=== PATIENT | female | born 1995 | race Caucasian/White ===

== ENCOUNTER → 2017-07-10 | Outpatient (CLI) | payer MEDICAID ==
[~2017-07-10] MED LIST: ACHD5005 PO; ACHYD1T PO; AMOX500C2 PO; BIRTH CONTORL; CEPH-38 PO; CEPH500C PO; HYDR-707 PO; IBP600T1 PO; IBP800T PO; INDM25C PO; LORA10TA7 PO; NAPR550T PO; NORE1PAT7 TD; ONDA8TAB13 PO; PRD20T PO; PREN1TAB71 PO
--- NOTE | 2017-07-10 11:01 | Diagnostic Imaging Report ---
PROCEDURE: US OB SINGLE FETUS <14 WKS. TECHNIQUE: Multiple real-time grayscale images were obtained over the gravid uterus in various projections. INDICATION: OB ultrasound for dates. FINDINGS: There is single live intrauterine fetus. [place]-rump length of 1.8 cm consistent with 8 week 3 day gestation. heart rate of 156 beats per minute. There does appear to be a small subchorionic fluid collection consistent with small hemorrhage measuring 1.5 x 2.5 cm on the right. This is fundal in nature. The ovaries are not demonstrated. IMPRESSION: 1. Single live intrauterine fetus consistent with 8 week 3 day gestation by ultrasound. This would give a sonographic EDC of 02/16/2018. 2. There is a subchorionic fluid collection along the fundus on the right. Dictated by: Dictated on workstation # [id number]
== END ==
LOC: RAD 09:26
PROVIDERS: ATTEND Family Medicine
DX: Z36.89 Encounter for other specified antenatal screening (principal); Z3A.08 8 weeks gestation of pregnancy
CPT/HCPCS: 76801

== ENCOUNTER 2017-08-01 19:16 | Emergency (ER) | payer MEDICAID ==
[~2017-08-01] VITALS: Ht 157.5 cm; Wt 54.0 kg
--- NOTE | 2017-08-01 21:01 | ED Head Injury ---
General Chief Complaint: Head/Cervical Problems Stated Complaint: FALL;DIZZINESS Nursing Triage Note: pt reports around 1440 she tripped into her bathroom and hit back of head on toilet, pt reports she did not have loc. pt states she got up and went to work abd around 1630 began to feel lightheaded and have crow. Source: patient Exam Limitations: no limitations History of Present Illness Date Seen by Provider: Aug 01, 2017 Time Seen by Provider: 21:00 Initial Comments 22-year-old female patient presents to the emergency department with complaints of falling in her bathroom at 1440 today and hitting the back of her head on the toilet. Patient states she did not lose consciousness. Initially did not have a headache. States she went to work and began having a headache and feeling lightheaded around 1630. States her employer instructed her to come to the emergency department for evaluation. Patient states she is 11 weeks . Location Injury Occurred: home Occurred: this afternoon Location: occipital Method of Injury: fell Loss of Consciousness: no loss of consciousness Allergies and Home Medications Allergies Coded Allergies: latex (Unverified Allergy, Mild, RASH, 01/01/15) Home Medications Norelgestromin/Ethin.estradiol 1 Each Patch.tdwk, 1 PATCH TD UD, #3 (Reported) Ondansetron 8 Mg Tab.rapdis, 8 MG PO Q6H PRN for NAUSEA, #10 Ref 0 Prescribed by: VISHAL BAGLEY on 05/30/161943 Prednisone 20 Mg Tab, 40 MG PO DAILY, #10 Ref 0 Prescribed by: VISHAL BAGLEY on 05/30/161943 Constitutional: No diaphoresis, No dizziness, No malaise, No weakness Eyes: No Symptoms Reported Ears, Nose, Mouth, Throat: no symptoms reported Respiratory: no symptoms reported Cardiovascular: No chest pain, No edema, No palpitations, No syncope, other ( lightheaded) Gastrointestinal: no symptoms reported Genitourinary: no symptoms reported Expected Date of Delivery: Feb 16, 2018 Musculoskeletal: No back pain, No joint pain, No neck pain Skin: no symptoms reported Psychiatric/Neurological: Denies Cognitive Dysfunction, Headache, Denies Numbness, Denies [place] Seizures, Denies Tingling, Denies Tonic Clonic Seizures, Denies Unable to Move Lower Ext, Denies Unable to Move Upper Ext, Denies Weakness All Other Systems Reviewed Negative Unless Noted: Yes (Negative excepted noted.) Past Dremgle-Ccoepb-Hbmjsx Hx Patient Social History Alcohol Use: Denies Use Recreational Drug Use: No Smoking Status: Never a Smoker Recent Foreign Travel: No Contact w/Someone Who Travel: No Recent Infectious Disease Expo: No Recent Hopitalizations: No Immunizations Up To Date Tetanus Booster (TDap): Less than 5yrs PED Vaccines UTD: No Date of Influenza Vaccine: Mar 26, 2011 Seasonal Allergies Seasonal Allergies: No Surgeries History of Surgeries: Yes Surgeries: Appendectomy Respiratory History of Respiratory Disorde: No Cardiovascular History of Cardiac Disorders: No Neurological History of Neurological Disord: Yes (childhood seizures-benign epilepsy, last one 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) Reproductive System : Yes Expected Date of Delivery: Feb 16, 2018 Last Menstrual Period: May 10, 2017 Hx : 3 Hx Para: 2 Hx Reproductive Disorders: No Female Reproductive Disorders: Ovarian Cyst Genitourinary History of Genitourinary Disor: No Gastrointestinal History of Gastrointestinal Di: No Gastrointestinal Disorders: Gastroesophageal Reflux Musculoskeletal History of Musculoskeletal Dis: No Endocrine History of Endocrine Disorders: No HEENT History of HEENT Disorders: No Cancer History of Cancer: No Psychosocial History of Psychiatric Problem: No Integumentary History of Skin or Integumenta: No Blood Transfusions History of Blood Disorders: No Adverse Reaction to a Blood Tr: No Reviewed Nursing Assessment Reviewed/Agree w Nursing PMH: Yes Family Medical History Significant Family History: No Pertinent Family Hx Family Medial History: Asthma 19 MOTHER Headache disorder 19 MOTHER (migraines) G8 SISTER (migraines) No Family History of: AIDS Abdominal aortic aneurysm [place]'s disease Alcoholism Alzheimer's disease Aphasia Arthritis Cancer of mouth Cardiovascular disease Cataracts Colon cancer Completed stroke Congenital disease Congenital heart disease Coronary thrombosis Cystic fibrosis Deafness or hearing loss Dementia Diabetes mellitus Drug abuse Dysphasia Fibrocystic disease of breast Gastroenteritis Glaucoma Hypercholesterolemia Hypertension Infertility Kidney disease Myocardial infarction Neoplasm Not obtainable due to adoption Osteoporosis Parkinson's disease Prostate cancer Psychosocial problem Respiratory disorder Seizure disorder Severe allergy Thyroid disease Tuberculosis Visual disorder Physical Exam Vital Signs Vital Signs - First Documented 08/01/17 20:17 Temp 98.7 Pulse 123 Resp 20 B/P (MAP) 109/74 (86) Pulse Ox 99 Capillary Refill : Less Than 3 Seconds General Appearance: WD/WN, no apparent distress HEENT: PERRL/EOMI, normal ENT inspection, TMs normal, pharynx normal, other ( occipital scalp shows mild swelling and tenderness. Evidence of skull depression noted.) Neck: non-tender, full range of motion, supple, normal inspection Cardiovascular: normal peripheral pulses, regular rate, rhythm, no edema, no murmur Respiratory: chest non-tender, lungs clear, normal breath sounds, no respiratory distress, no accessory muscle use Gastrointestinal: normal bowel sounds, non tender, soft, no organomegaly Back: normal inspection, no CVA tenderness, no vertebral tenderness Extremities: normal range of motion, non-tender, normal inspection, no pedal edema, normal capillary refill, pelvis stable Psychiatric: alert, oriented x 3 Crainal Nerves: normal hearing, normal speech, PERRL Coordination/Gait: normal finger to nose, normal gait, negative Romberg's sign Motor/Sensory: no motor deficit, no sensory deficit, no pronator drift Skin: normal color, warm/dry Hollins Coma Score Best Eye Response: (4) Open Spontaneously Best Verbal Response: (5) Oriented Best Motor Response: (6) Obeys Commands Hollins Total: 15 Progress/Results/Core Measures Results/Orders My Orders Orders - VISHAL BAGLEY Acetaminophen Tablet (Tylenol Tablet) (08/01/17 21:18) Rx-Hydrocodone/Apap 5-325 Mg (Rx-Vicodin (08/01/17 21:30) Medications Given in ED Current Medications Medications Dose Ordered Sig/Bibiana Route Start Time Stop Time Status Last Admin Dose Admin Acetaminophen/ Hydrocodone Bitart 1 ea Q4H PRN PO 08/01/17 21:30 08/01/17 21:35 1 EA Vital Signs/I&O Vital Sign - Last 12Hours 08/01/17 20:17 Temp 98.7 Pulse 123 Resp 20 B/P (MAP) 109/74 (86) Pulse Ox 99 Blood Pressure Mean: 86 Departure Communication (Admissions) Progress Notes Patient seen and evaluated. Patient did not have loss of consciousness, confusion, seizure, vomiting, or neck pain. Patient is also 11 weeks . I discussed risks, benefits, possible complications associated with CT scan of the head versus conservative management. Patient states she has an appointment with Dr. Giraldo tomorrow morning in his office for regular checkup. Patient states she would like to proceed with conservative management and follow -up with Dr. Giraldo tomorrow as previously scheduled. All return precautions were discussed with the patient as described in the discharge instructions of this report. Patient verbalizes understanding and agrees with the treatment plan. Patient case discussed with Dr. Norwood, he agrees with the plan of care. Impression Impression: Primary Impression: Minor head injury without loss of consciousness Qualified Codes: S09.90XA - Unspecified injury of head, initial encounter Additional Impression: 11 weeks gestation of Disposition: 01 HOME, SELF-CARE Condition: Improved Departure-Patient Inst. Decision time for Depature: 21:19 Referrals: ARMANDO GIRALDO MD (PCP/Family) Primary Care Physician Patient Instructions: Minor Head Injury (DC) Add. Discharge Instructions: All discharge instructions reviewed with patient and/or family. Voiced understanding. Medications as instructed or Tylenol extra strength over-the- counter as directed for pain or headache. Ice pack for 20 minute intervals as needed for pain. Avoid standing quickly. No activities which may result and head injury or strenuous activities until released by Dr. Giraldo. Follow-up with Dr. Giraldo tomorrow as previously scheduled. Return to the emergency department for worsened pain, headache, dizziness, changes in vision, changes in behavior, slurred speech, facial drooping, neck pain, back pain, shortness of air, chest pain, seizure, vomiting, vaginal bleeding, vaginal discharge, or any other concerns. Work/School Note: Work Release Form Date Seen in the Emergency Department: Aug 01, 2017 Return to Work: Aug 03, 2017 Restrictions: Need Release from Doctor VISHAL BAGLEY Aug 01, 2017 21:01
[2017-08-01] MEDS ORDERED: ACETAMINOPHEN 500 MG TAB (TYLENOL) PO STA (21:18)
[2017-08-01] MEDS ORDERED: RX-HYDROCODONE/APAP 5/325 MG #4 TAB PK PO PRN (21:30)
[2017-08-01 21:35] VITALS: BP 113/76
== END 2017-08-01 21:35 | disposition home or self-care (01) ==
LOC: EDUNIT# 19:16 → ER 19:17
DX: O9A.211 Injury, poisoning and certain other consequences of external causes complicating pregnancy, first trimester (principal); S09.90XA Unspecified injury of head, initial encounter; R40.2142 Coma scale, eyes open, spontaneous, at arrival to emergency department; R40.2252 Coma scale, best verbal response, oriented, at arrival to emergency department; R40.2362 Coma scale, best motor response, obeys commands, at arrival to emergency department; G40.909 Epilepsy, unspecified, not intractable, without status epilepticus; Z87.448 Personal history of other diseases of urinary system; Z91.040 Latex allergy status; Z79.52 Long term (current) use of systemic steroids; Z90.49 Acquired absence of other specified parts of digestive tract; W01.198A Fall on same level from slipping, tripping and stumbling with subsequent striking against other object, initial encounter; Z3A.11 11 weeks gestation of pregnancy
CPT/HCPCS: 99283

== ENCOUNTER → 2017-10-02 | Outpatient (CLI) | payer MEDICAID ==
--- NOTE | 2017-10-02 13:51 | Diagnostic Imaging Report ---
INDICATION: survey. TECHNIQUE: Multiple real-time grayscale images were obtained over the gravid uterus. COMPARISON: 07/10/2017. FINDINGS: There is a single live fetus in a transverse presentation, head to the maternal right. heart rate was recorded at 139 beats per minute. The placenta is posterior. The amniotic fluid volume is normal. survey demonstrates kidneys, bladder, and stomach to be unremarkable. brain is unremarkable. There is a four-chamber heart. There is a three-vessel cord with normal cord insertion. The spine is unremarkable. Biometrical measurements are as follows: Biparietal 5.0 cm, age 21 weeks 1 days. Head circumference 18.3 cm, age 20 weeks 5 days. Abdominal circumference 15.5 cm, age 20 weeks 5 days. Femur length 3.4 cm, age 20 weeks 5 days. Sonographic estimate age: 20 weeks 6 days. Sonographic estimated date of delivery: 02/13/18. Estimated Weight: 372 gm (+/- 54 gm). LMP percentile: 61%. heart rate: 139 beats per minute. number: 1 of 1. IMPRESSION: Single live IUP at approximately 21 weeks gestational age demonstrating normal interval growth when compared with prior exam from 07/10/2017. No complicating features are detected. Dictated by: Dictated on workstation # [id number]
== END ==
LOC: RAD 12:16
PROVIDERS: ATTEND Family Medicine
DX: Z36.89 Encounter for other specified antenatal screening (principal); Z3A.20 20 weeks gestation of pregnancy
CPT/HCPCS: 76805

== ENCOUNTER 2017-11-22 10:33 | Outpatient (CLI) | payer MEDICAID ==
[2017-11-22 11:32] VITALS: BP 105/59
[2017-11-22 11:55] VITALS: BP 96/57
== END 2017-11-22 11:55 | disposition home or self-care (01) ==
LOC: WSo 10:33
PROVIDERS: ATTEND Family Medicine
DX: Z31.82 Encounter for Rh incompatibility status (principal)
CPT/HCPCS: 96372

== ENCOUNTER 2018-08-26 16:27 | Emergency (ER) | payer MEDICAID ==
[~2018-08-26] VITALS: Ht 157.5 cm; Wt 63.5 kg
[~2018-08-26 16:27] MED LIST changes: +IBUP-844 PO
--- NOTE | 2018-08-26 16:40 | ED EENT ---
History of Present Illness General Chief Complaint: Oral/Throat Problems Stated Complaint: SORE THROAT,FEVER Source: patient Exam Limitations: no limitations History of Present Illness Date Seen by Provider: Aug 26, 2018 Time Seen by Provider: 16:37 Initial Comments This 23-year-old white female presents with a sore throat and fever that has been present since this morning. The patient is worried that she has strep throat. 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 Patient denies associated headache, stiff neck, photophobia, productive cough or shortness of breath, nausea vomiting or diarrhea. Allergies and Home Medications Allergies Coded Allergies: latex (Unverified Allergy, Mild, RASH, 01/01/15) Home Medications Ibuprofen 600 Mg Tablet, 600 MG PO Q6H Prescribed by: ARMANDO GIRALDO on 02/13/18 172 Ondansetron 8 Mg Tab.rapdis, 8 MG PO Q6H PRN for NAUSEA Prescribed by: VISHAL BAGLEY on 05/30/161943 Patient Home Medication List Home Medication List Reviewed: Yes Review of Systems Review of Systems Constitutional: fever Eyes: Denies Blurred Vision Ears: Denies Pain Nose: denies epistaxis Mouth: pain Throat: see HPI, pain Respiratory: No cough Cardiovascular: No chest pain Gastrointestinal: No abdominal pain, No nausea, No vomiting Musculoskeletal: no symptoms reported Skin: no symptoms reported Neurological: No Symptoms Reported Hematologic/Lymphatic: No Symptoms Reported Immunological/Allergic: no symptoms reported Past Fflouka-Poblqz-Qepsqd Hx Past Med/Social Hx: Reviewed Nursing Past Med/Soc Hx Patient Social History Recent Foreign Travel: No Contact w/Someone Who Travel: No Recent Hopitalizations: No Immunizations Up To Date Tetanus Booster (TDap): Less than 5yrs PED Vaccines UTD: No Date of Influenza Vaccine: Mar 26, 2011 Seasonal Allergies Seasonal Allergies: No Past Medical History Surgeries: Yes Appendectomy Respiratory: No Cardiac: No Neurological: Yes (childhood seizures-benign epilepsy, last one 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 ) Reproductive Disorders: No Female Reproductive Disorders: Ovarian Cyst Genitourinary: No Gastrointestinal: No Gastroesophageal Reflux Musculoskeletal: No Endocrine: No HEENT: No Cancer: No Psychosocial: No Integumentary: No Blood Disorders: No Adverse Reaction/Blood Tranf: No (hx of 1 unit given/no reaction) Family Medical History Asthma 19 MOTHER Headache disorder 19 MOTHER (migraines) G8 SISTER (migraines) No Family History of: AIDS Abdominal aortic aneurysm [place]'s disease Alcoholism Alzheimer's disease Aphasia Arthritis Cancer of mouth Cardiovascular disease Cataracts Colon cancer Completed stroke Congenital disease Congenital heart disease Coronary thrombosis Cystic fibrosis Deafness or hearing loss Dementia Diabetes mellitus Drug abuse Dysphasia Fibrocystic disease of breast Gastroenteritis Glaucoma Hypercholesterolemia Hypertension Infertility Kidney disease Myocardial infarction Neoplasm Not obtainable due to adoption Osteoporosis Parkinson's disease Prostate cancer Psychosocial problem Respiratory disorder Seizure disorder Severe allergy Thyroid disease Tuberculosis Visual disorder No Pertinent Family Hx Physical Exam Vital Signs Vital Signs - First Documented 08/26/18 16:30 Temp 96.2 Pulse 100 Resp 18 B/P (MAP) 112/62 (79) Pulse Ox 100 O2 Delivery Room Air Height, Weight, BMI Height: 5'2.00" Weight: 157lbs. 0.0oz. 71.842021cg; 28.7 BMI Method:Stated General Appearance: no apparent distress Eyes: bilateral eye normal inspection Ears: bilateral ear auricle normal Nose: normal inspection Mouth/Throat: pharynx tenderness Neck: non-tender, full range of motion, supple Cardiovascular: regular rate, rhythm, no murmur Respiratory: chest non-tender, normal breath sounds Gastrointestinal: normal bowel sounds, soft Neurologic/Psychiatric: no motor/sensory deficits, alert Skin: normal color, warm/dry; No rash Progress/Results/Core Measures Results/Orders Lab Results Laboratory Tests Test 08/26/18 16:34 Range/Units Group A Streptococcus Screen NEGATIVE NEGATIVE My Orders Orders - MARIELA STEVENS MD Rapid Strep A Screen (08/26/18 16:36) Vital Signs/I&O 08/26/18 16:30 Temp 96.2 Pulse 100 Resp 18 B/P (MAP) 112/62 (79) Pulse Ox 100 O2 Delivery Room Air Progress Progress Note : Time: 17:18 Progress Note Patient's strep screen was negative. Departure Impression Primary Impression: Acute viral pharyngitis Disposition: 01 HOME, SELF-CARE Condition: Unchanged Departure-Patient Inst. Decision time for Depature: 17:19 Referrals: ARMANDO GIRALDO MD (PCP/Family) Primary Care Physician Patient Instructions: Viral Pharyngitis Add. Discharge Instructions: Rest at home. Warm salt water gargles. Vicodin for severe pain. Return if any problems or questions. All discharge instructions reviewed with patient and /or family. Voiced understanding. MARIELA STEVENS MD Aug 26, 2018 16:40
[2018-08-26] MEDS ORDERED: NAPR-1067 (16:44)
[2018-08-26 18:10] VITALS: BP 112/62
== END 2018-08-26 18:10 | disposition home or self-care (01) ==
LOC: EDUNIT# 16:27 → ER 16:28
DX: J02.9 Acute pharyngitis, unspecified (principal); G40.909 Epilepsy, unspecified, not intractable, without status epilepticus; K21.9 Gastro-esophageal reflux disease without esophagitis; Z87.448 Personal history of other diseases of urinary system; Z91.040 Latex allergy status; Z90.49 Acquired absence of other specified parts of digestive tract
CPT/HCPCS: 87430; 99284

== ENCOUNTER → 2019-11-19 | Outpatient (CLI) | payer MEDICAID ==
[~2019-11-19] MED LIST changes: +NAPR-1067
--- NOTE | 2019-11-19 13:17 | Diagnostic Imaging Report ---
INDICATION: dating. There is an intrauterine gestational sac containing a pole. [place]-rump length measurement is consistent with approximately 6 weeks 4 days gestation. heart rate was recorded at 120 bpm. There is an area of hypoechogenicity adjacent to the gestational sac consistent with subchorionic bleed. Left ovary does contain a 17 mm cyst, likely corpus luteum. No free fluid is seen. Ovaries demonstrate blood flow. IMPRESSION: Single live IUP approximately 6 weeks 4 days gestational age. Estimated date of confinement sonographically is 07/10/2020. Note is made of small and subchorionic bleed. Dictated by: Dictated on workstation # [id number]
== END ==
LOC: RAD 09:56
PROVIDERS: ATTEND Family Medicine
DX: Z34.91 Encounter for supervision of normal pregnancy, unspecified, first trimester (principal); Z3A.01 Less than 8 weeks gestation of pregnancy
CPT/HCPCS: 76801; 76817

== ENCOUNTER 2020-03-08 10:13 | Emergency (ER) | payer MEDICAID ==
[~2020-03-08] VITALS: Ht 157 cm; Wt 63.5 kg
[2020-03-08 10:37] LABS: BILIRUBIN,URINE NEGATIVE (NEGATIVE); CLARITY,URINE CLEAR; COLOR,URINE YELLOW; GLUCOSE, URINE (UA) NEGATIVE (NEGATIVE); KETONES,URINE NEGATIVE (NEGATIVE); LEUKOCYTE ESTERASE ,URINE NEGATIVE (NEGATIVE); NITRITE,URINE NEGATIVE (NEGATIVE); PROTEIN,URINE NEGATIVE (NEGATIVE)
[2020-03-08 10:45] LABS: BASOPHILS % (AUTO) 0 % (0-10); EOSINOPHILS # (AUTO) 0.2 10^3/uL (0.0-0.3); EOSINOPHILS % (AUTO) 2 % (0-10); HEMATOCRIT 33 % (35-52); HEMOGLOBIN 11.4 G/DL (11.5-16.0); LYMPHOCYTES # (AUTO) 2.2 X 10^3 (1.0-4.0); LYMPHOCYTES % (AUTO) 19 % (12-44); MEAN CORPUSCULAR HEMOGLOBIN 30 PG (25-34); MEAN CORPUSCULAR HGB CONC 34 G/DL (32-36); MEAN CORPUSCULAR VOLUME 88 FL (80-99); MEAN PLATELET VOLUME 11.1 FL (7.4-10.4); MONOCYTES # (AUTO) 0.6 X 10^3 (0.0-1.0); MONOCYTES % (AUTO) 5 % (0-12); NEUTROPHILS # (AUTO) 8.8 X 10^3 (1.8-7.8); NEUTROPHILS % (AUTO) 74 % (42-75); PLATELET COUNT 204 10^3/uL (130-400); WHITE BLOOD COUNT 11.9 10^3/uL (4.3-11.0)
[2020-03-08 10:47] LABS: BACTERIA,URINE TRACE /HPF
--- NOTE | 2020-03-08 10:47 | ED General ---
General Chief Complaint: Eye Problems Stated Complaint: BLURRIED VISION Source of Information: Patient Exam Limitations: No Limitations History of Present Illness Date Seen by Provider: Mar 08, 2020 Time Seen by Provider: 10:23 Initial Comments Here with report of intermittent blurred vision over the last 24 hours. Patient is 22 weeks and had ultrasound 10 days ago showing everything was okay at that point. Denies dysuria or diarrhea. States eating and drinking okay although not drinking enough water. Does take vitamins. Follows up with Dr. Giraldo. Timing/Duration: 24 Hours, Intermittent Severity: Mild Associated Systoms: No Chest Pain, No Cough, No Fever/Chills, No Nausea/Vomiting, No Shortness of Air, No Weakness Allergies and Home Medications Allergies Coded Allergies: latex (Unverified Allergy, Mild, RASH, 01/01/15) Home Medications Ibuprofen 600 Mg Tablet, 600 MG PO Q6H Prescribed by: ARMANDO GIRALDO on 02/13/18 1721 Ondansetron 8 Mg Tab.rapdis, 8 MG PO Q6H PRN for NAUSEA Prescribed by: VISHAL BAGLEY on 05/30/16 1944 Patient Home Medication List Home Medication List Reviewed: Yes Review of Systems Review of Systems Constitutional: see HPI EENTM: blurred vision; No double vision Respiratory: No cough, No short of breath Cardiovascular: No chest pain, No edema Gastrointestinal: No abdominal pain, No nausea, No vomiting Genitourinary: No dysuria, No frequency : Yes Musculoskeletal: no symptoms reported Skin: no symptoms reported Psychiatric/Neurological: See HPI Past Hwfgvrw-Yyxfnh-Ysyloe Hx Past Med/Social Hx: Reviewed Nursing Past Med/Soc Hx Patient Social History Alcohol Use: Denies Use Recreational Drug Use: No Smoking Status: Never a Smoker Recent Foreign Travel: No Contact w/Someone Who Travel: No Recent Hopitalizations: No Immunizations Up To Date Tetanus Booster (TDap): Less than 5yrs PED Vaccines UTD: No Date of Influenza Vaccine: Mar 26, 2011 Seasonal Allergies Seasonal Allergies: No Past Medical History Surgeries: Yes Appendectomy Respiratory: No Cardiac: No Neurological: Yes (childhood seizures-benign epilepsy, last one 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) Reproductive Disorders: No Female Reproductive Disorders: Ovarian Cyst Genitourinary: No Gastrointestinal: No Gastroesophageal Reflux Musculoskeletal: No Endocrine: No HEENT: No Cancer: No Psychosocial: No Integumentary: No Blood Disorders: No Adverse Reaction/Blood Tranf: No (hx of 1 unit given/no reaction) Family Medical History Reviewed Nursing Family Hx Asthma 19 MOTHER Headache disorder 19 MOTHER (migraines) G8 SISTER (migraines) No Pertinent Family Hx Physical Exam Vital Signs Capillary Refill : Height, Weight, BMI Height: 5'2.00" Weight: 140lbs. 0.0oz. 63.122642ef; 28.7 BMI Method:Stated General Appearance: No Apparent Distress, WD/WN HEENT: PERRL/EOMI, Pharynx Normal Neck: Non Tender, Supple Respiratory: Lungs Clear, Normal Breath Sounds Cardiovascular: Regular Rate, Rhythm, No Murmur Back: Normal Inspection, No CVA Tenderness, No Vertebral Tenderness Extremity: Normal Range of Motion, Non Tender Neurologic/Psychiatric: Alert, Oriented x3 Skin: Normal Color, Warm/Dry Progress/Results/Core Measures Suspected Sepsis SIRS Temperature: Pulse: Respiratory Rate: Laboratory Tests 03/08/20 10:38: White Blood Count 11.9H Blood Pressure / Mean: Laboratory Tests 03/08/20 10:38: Creatinine 0.57L, Platelet Count 204, Total Bilirubin 0.4 Results/Orders Lab Results Laboratory Tests Test 03/08/20 10:20 03/08/20 10:38 Range/Units Urine Color YELLOW Urine Clarity CLEAR Urine pH 7.0 5-9 Urine Specific [place] 1.015 L 1.016-1.022 Urine Protein NEGATIVE NEGATIVE Urine Glucose (UA) NEGATIVE NEGATIVE Urine Ketones NEGATIVE NEGATIVE Urine Nitrite NEGATIVE NEGATIVE Urine Bilirubin NEGATIVE NEGATIVE Urine Urobilinogen 0.2 < = 1.0 MG/DL Urine Leukocyte Esterase NEGATIVE NEGATIVE Urine RBC (Auto) NEGATIVE NEGATIVE Urine RBC NONE /HPF Urine WBC NONE /HPF Urine Squamous Epithelial Cells 5-10 /HPF Urine Crystals NONE /LPF Urine Bacteria TRACE /HPF Urine Casts NONE /LPF Urine Mucus NEGATIVE /LPF Urine Culture Indicated NO White Blood Count 11.9 H 4.3-11.0 10^3/uL Red Blood Count 3.79 L 4.35-5.85 10^6/uL Hemoglobin 11.4 L 11.5-16.0 G/DL Hematocrit 33 L 35-52 % Mean Corpuscular Volume 88 80-99 FL Mean Corpuscular Hemoglobin 30 25-34 PG Mean Corpuscular Hemoglobin Concent 34 32-36 G/DL Red Cell Distribution Width 13.2 10.0-14.5 % Platelet Count 204 130-400 10^3/uL Mean Platelet Volume 11.1 H 7.4-10.4 FL Neutrophils (%) (Auto) 74 42-75 % Lymphocytes (%) (Auto) 19 12-44 % Monocytes (%) (Auto) 5 0-12 % Eosinophils (%) (Auto) 2 0-10 % Basophils (%) (Auto) 0 0-10 % Neutrophils # (Auto) 8.8 H 1.8-7.8 X 10^3 Lymphocytes # (Auto) 2.2 1.0-4.0 X 10^3 Monocytes # (Auto) 0.6 0.0-1.0 X 10^3 Eosinophils # (Auto) 0.2 0.0-0.3 10^3/uL Basophils # (Auto) 0.0 0.0-0.1 10^3/uL Sodium Level 136 135-145 MMOL/L Potassium Level 3.7 3.6-5.0 MMOL/L Chloride Level 107 98-107 MMOL/L Carbon Dioxide Level 20 L 21-32 MMOL/L Anion Gap 9 5-14 MMOL/L Blood Urea Nitrogen 7 7-18 MG/DL Creatinine 0.57 L 0.60-1.30 MG/DL Estimat Glomerular Filtration Rate > 60 BUN/Creatinine Ratio 12 Glucose Level 93 70-105 MG/DL Calcium Level 8.5 8.5-10.1 MG/DL Corrected Calcium 8.9 8.5-10.1 MG/DL Total Bilirubin 0.4 0.1-1.0 MG/DL Aspartate Amino Transf (AST/SGOT) 19 5-34 U/L Alanine Aminotransferase (ALT/SGPT) 19 0-55 U/L Alkaline Phosphatase 83 40-136 U/L Total Protein 6.4 6.4-8.2 GM/DL Albumin 3.5 3.2-4.5 GM/DL My Orders Orders - SIXTO VEE MD Ua Culture If Indicated (03/08/20 10:28) Cbc With Automated Diff (03/08/20 10:28) Comprehensive Metabolic Panel (03/08/20 10:28) Vital Signs/I&O Capillary Refill : Progress Note : Progress Note Seen and evaluated. 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 We will check UA as well as basic labs. If these are negative, he can follow up with her on Monday or Monday. This was discussed with the patient who agrees. Monitor patient. 1105: Labs reviewed and showed no acute significant findings. I did discuss with the patient regarding normalizing diet and drinking appropriate amount of fluids including water. Instructed to follow-up with Dr. Giraldo. Discharged home with return precautions. Patient verbalize understanding instructions and agreement with plan. Departure Impression Primary Impression: Blurred vision, bilateral Additional Impression: Single in second trimester Disposition: 01 HOME, SELF-CARE Condition: Stable Departure-Patient Inst. Decision time for Depature: 11:07 Referrals: ARMANDO GIRALDO MD (PCP/Family) Primary Care Physician Patient Instructions: Nutrition Before and During Add. Discharge Instructions: All discharge instructions reviewed with patient and/or family. Voiced understanding. Follow-up with Dr. Giraldo in one to 2 days. Call his office tomorrow for appointment. Return for worsening vision problems, pain, fever, vomiting, weakness, breathing problems or other concerns as needed. Continue to eat a normal diet and drink an adequate amount of fluids including water. Copy Copies To 1: ARMANDO GIRALDO MD, TIMOTHY D MD Mar 08, 2020 10:47
[2020-03-08 10:51] LABS: ALBUMIN 3.5 GM/DL (3.2-4.5); CHLORIDE 107 MMOL/L (98-107); POTASSIUM 3.7 MMOL/L (3.6-5.0); SODIUM 136 MMOL/L (135-145)
[2020-03-08 10:52] LABS: CALCIUM 8.5 MG/DL (8.5-10.1)
[2020-03-08 10:53] LABS: GLUCOSE 93 MG/DL (70-105)
[2020-03-08 10:54] LABS: TOTAL PROTEIN 6.4 GM/DL (6.4-8.2)
[2020-03-08 10:55] LABS: BILIRUBIN,TOTAL 0.4 MG/DL (0.1-1.0); CARBON DIOXIDE 20 MMOL/L (21-32)
[2020-03-08 10:57] LABS: ALKALINE PHOSPHATASE 83 U/L (40-136); CREATININE SERUM 0.57 MG/DL (0.60-1.30); GFR ESTIMATED > 60
[2020-03-08 10:58] LABS: BUN/CREATININE RATIO 12
[2020-03-08 11:00] LABS: ALANINE AMINOTRANSFERASE 19 U/L (0-55)
[2020-03-08 11:18] VITALS: BP 126/84
== END 2020-03-08 11:18 | disposition home or self-care (01) ==
LOC: EDUNIT# 10:13 → ER 10:14
DX: O26.892 Other specified pregnancy related conditions, second trimester (principal); H53.8 Other visual disturbances; Z3A.22 22 weeks gestation of pregnancy; Z91.040 Latex allergy status
CPT/HCPCS: 36415; 80053; 81000; 85025

== ENCOUNTER 2020-04-16 18:11 | Outpatient (CLI) | payer MEDICAID ==
[~2020-04-16] VITALS: Ht 157.5 cm; Wt 68.3 kg
[2020-04-16 18:25] VITALS: BP 119/70
[2020-04-16 18:36] VITALS: BP 119/70
[2020-04-16 18:42] VITALS: BP 119/70
[2020-04-16 19:34] LABS: BILIRUBIN,URINE NEGATIVE (NEGATIVE); CLARITY,URINE SL CLOUDY; COLOR,URINE YELLOW; GLUCOSE, URINE (UA) NEGATIVE (NEGATIVE); KETONES,URINE NEGATIVE (NEGATIVE); LEUKOCYTE ESTERASE ,URINE NEGATIVE (NEGATIVE); NITRITE,URINE NEGATIVE (NEGATIVE); PH,URINE 6.5 (5-9); PROTEIN,URINE NEGATIVE (NEGATIVE)
[2020-04-16 19:37] VITALS: BP 108/72
[2020-04-16 19:44] LABS: AMORPHOUS SEDIMENT,UR FEW AMOR URATES /LPF; BACTERIA,URINE TRACE /HPF; WBC,URINE 0-2 /HPF
--- NOTE | 2020-04-16 19:48 | NUR ---
Dr. Sandhu notified of patient arrival, complaints, assessment, and UA. Orders received to get CBC.
[2020-04-16 20:10] LABS: BASOPHILS % (AUTO) 0 % (0-10); EOSINOPHILS # (AUTO) 0.2 10^3/uL (0.0-0.3); EOSINOPHILS % (AUTO) 2 % (0-10); HEMATOCRIT 31 % (35-52); HEMOGLOBIN 10.2 g/dL (11.5-16.0); LYMPHOCYTES # (AUTO) 2.7 10^3/uL (1.0-4.0); LYMPHOCYTES % (AUTO) 24 % (12-44); MEAN CORPUSCULAR HEMOGLOBIN 29 pg (25-34); MEAN CORPUSCULAR HGB CONC 33 g/dL (32-36); MEAN CORPUSCULAR VOLUME 89 fL (80-99); MEAN PLATELET VOLUME 11.1 fL (9.0-12.2); MONOCYTES # (AUTO) 0.7 10^3/uL (0.0-1.0); MONOCYTES % (AUTO) 6 % (0-12); NEUTROPHILS # (AUTO) 7.4 10^3/uL (1.8-7.8); NEUTROPHILS % (AUTO) 67 % (42-75); PLATELET COUNT 211 10^3/uL (130-400)
--- NOTE | 2020-04-16 20:14 | NUR ---
Dr. Sandhu notified of CBC. Orders received to discharge home and to follow up in the office in the morning.
--- NOTE | 2020-04-16 20:30 | NUR ---
Written discharge instructions reviewed with patient. Discharge instructions signed and copy given. Condition stable, patient ambulated off unit. No signs or symptoms of distress.
--- NOTE | 2020-04-17 08:39 | Physician Query-Final Dx ---
JUANI KOVACS 04/17/20 0839: Clinic Account Progress/Dx Physician Query: Please give diagnosis Please include # weeks gestation Date of Service Apr 16, 2020 at 18:11 ARMANDO GIRALDO MD 04/20/20 0713: Clinic Account Progress/Dx DIAGNOSIS: Diagnosis 1. IUP at 24 weeks 2. Abdominal pain, non-specific JUANI KOVACS Apr 17, 2020 08:39 ARMANDO GIRALDO MD Apr 20, 2020 07:13
== END 2020-04-16 20:30 | disposition home or self-care (01) ==
LOC: WSo 18:11 → LDRP 18:11 → WSo 20:30
PROVIDERS: ATTEND Family Medicine
DX: O36.8131 Decreased fetal movements, third trimester, fetus 1 (principal); Z3A.28 28 weeks gestation of pregnancy
CPT/HCPCS: 36415; 81000; 85025; 99213

== ENCOUNTER 2020-07-06 05:58 | Inpatient (IN) | payer MEDICAID ==
[~2020-07-06] VITALS: Ht 157.5 cm; Wt 73.4 kg
[2020-07-06] VITALS (48 sets, daily range): BP systolic 84–125; BP diastolic 50–94
--- NOTE | 2020-07-06 06:06 | NUR ---
RENÉE APARICIO presented to unit via ambulation from ED, accompanied by SO, with c/o INDUCED. RENÉE APARICIO weighed, gowned, voided, and to bed. EFHM and TOCO applied, VS taken. RENÉE APARICIO oriented to bed controls, call light, TV, heat, and A/C controls.
[2020-07-06] MEDS ORDERED: D5 LR IV SOLUTION 1,000 ML IV SCH (06:15)
[2020-07-06] MEDS ORDERED: MEPIVACAINE (CARBOCAINE) 2% 50 ML VIAL INJ PRN (06:15)
[2020-07-06] MEDS ORDERED: MINERAL OIL CONCENTRATE 99.9% 15 ML UDC TOP PRN (06:15)
--- NOTE | 2020-07-06 06:34 | History & Physical-OB ---
OB - Chief Complaint & HPI Date/Time Date of Admission: Date of Admission: Jul 06, 2020 at 06:08 Date seen by a Provider: Jul 06, 2020 Time Seen by a Provider: 06:30 Chief Complaint/History OB-Reason for Admission/Chief: Induction of Labor Hx : 4 Hx Para: 3 Expected Date of Delivery: Jul 10, 2020 Gestational Age in Weeks: 39 Gestational Age in Days: 3 Admission Nurse Assessment Rev: Yes History of Labs GBS negative Allergies and Home Medications Allergies Coded Allergies: latex (Unverified Allergy, Mild, RASH, 01/01/15) Patient Home Medication List Home Medication List Reviewed: Yes OB - History Hx of Present Care: Yes Ultrasounds: Normal mid trimester US Obstetrical Complications: None Medical Complications: None Obstetrical History Hx Termination: No Hx Multiple Gestation: No Hx Stillbirth: No Hx Complication: No Hx Induced Hypertens: No Hx Maternal Gestational Diabet: No Delivery History Hx Dystocia: No Hx Large For Gestational Age I: No Hx Small for Gestational Age I: No Hx Section: No Hx Vaginal Delivery Post C-Sec: No Hx Blood Disorders: No Adverse Rxn to Tranfusion: No (hx of 1 unit given/no reaction) Patient Past Medical History Appendectomy 2015 Social History/Family History 2nd Hand Smoke Exposure: No Immunizations Hepatitis A: No Hepatitis B: No Tetanus Booster (TDap): Less than 5yrs Date of Influenza Vaccine: Mar 26, 2011 OB - Admission Exam Physical Exam HEENT: Moist Membranes Heart: Rhythm Normal Abdomen: Gravid Extremities: Normal Cervical Dilatation: 1cm Effacement: 50% Station: -3 Membranes: Intact Heart Rate: 140's Accelerations: Accelerations Present Short Term Variability: Present Fci Variability: Average (6-25) Contractions on Admission: None Intensity: Mild Jama Scoring Tool (Modified) Dilation (cm): 1-2cm (1) Effacement (%): 31-51% (1) Descent/Station: -3 (0) Cervix Consistency: Medium(1) Cervix Position: Middle/Mid-Position (1) Add 1 point for: Each previous vaginal delivery (1) Jama Score: 7 OB - Assessment/Plan/Diagnosis Assessment Assessment: induction of labor Admission Dx 1. IUP at term 39 weeks Admission Status: Inpatient Order (span 2 midnights) Reason for Inpatient Admission: L&D Plan Plan: Induction Induction Method: AROM Other Plan -epidural if patient desires ARMANDO GIRALDO MD Jul 06, 2020 06:34
[2020-07-06 06:55] LABS: BASOPHILS # (AUTO) 0.1 10^3/uL (0.0-0.1); BASOPHILS % (AUTO) 1 % (0-10); EOSINOPHILS # (AUTO) 0.1 10^3/uL (0.0-0.3); EOSINOPHILS % (AUTO) 1 % (0-10); HEMATOCRIT 31 % (35-52); LYMPHOCYTES # (AUTO) 2.2 10^3/uL (1.0-4.0); LYMPHOCYTES % (AUTO) 21 % (12-44); MEAN CORPUSCULAR HEMOGLOBIN 27 pg (25-34); MEAN CORPUSCULAR HGB CONC 32 g/dL (32-36); MEAN CORPUSCULAR VOLUME 83 fL (80-99); MEAN PLATELET VOLUME 11.5 fL (9.0-12.2); MONOCYTES # (AUTO) 0.9 10^3/uL (0.0-1.0); MONOCYTES % (AUTO) 8 % (0-12); NEUTROPHILS # (AUTO) 7.1 10^3/uL (1.8-7.8); NEUTROPHILS % (AUTO) 66 % (42-75); PLATELET COUNT 172 10^3/uL (130-400); WHITE BLOOD COUNT 10.8 10^3/uL (4.3-11.0)
[2020-07-06] MEDS ORDERED: OXYTOCIN PRE-MIX DRIP 500 ML IV SCH ×2 (07:00→15:15)
[2020-07-06] MEDS ORDERED: fentaNYL 2 mcg/ml BUPIVA 0.125 100 ML ONE (08:11)
[2020-07-06] MEDS ORDERED: BUPIVACAINE 0.25% 30 ML (SENSORCAINE) VIAL ONE (08:40)
[2020-07-06] MEDS ORDERED: fentaNYL INJECTION 100 MCG/2 ML AMP ONE (08:40)
[2020-07-06] MEDS ORDERED: NALOXONE 0.4 MG/ML 1 ML (NARCAN) VIAL IV PRN (08:45)
[2020-07-06] MEDS ORDERED: fentaNYL 2 mcg/ml BUPIVA 0.125 100 ML IV SCH (08:45)
[2020-07-06] MEDS ORDERED: diphenhydrAMINE 50 MG/ML INJ (BENADRYL) IV PRN (08:45)
[2020-07-06] MEDS ORDERED: CATHETER FLUSH 10 ML SYR IV PRN (08:45)
[2020-07-06] MEDS ORDERED: ONDANSETRON 4 MG/2 ML (SDV) Z0FRAN IV PRN (08:45)
[2020-07-06] MEDS ORDERED: LACTATED RINGERS 1,000 ML IV ONE (08:45)
[2020-07-06] MEDS ORDERED: CATHETER FLUSH 10 ML SYR IV SCH ×2 (14:00→22:00)
--- NOTE | 2020-07-06 15:07 | OB Labor & Delivery Record ---
L&D History Date of Service Date of Service: Jul 06, 2020 History Expected Date of Delivery: Jul 10, 2020 Gestational Age in Weeks: 39 Hx : 4 Hx Para: 4 Complications Events: Routine care Operative Indications (Cesarea: N/A-Vaginal Delivery Intrapartal Events: None L&D Stage1 Stage One Onset of Labor - Date: Jul 06, 2020 Onset of Labor - Time: 06:39 Monitors and Tracing Monitor Mode: Internal Heart Rate: 120 Monitor Accelerations: Uniform Monitor Decelerations: Variable Station: 0 Intermediate Variability: Average (6-10) Short Term Variability: Present Presentation: Vertex Vital Signs VS - Last 72 Hours, by Label 07/06/20 07/06/20 07/06/20 07/06/20 06:18 07:20 07:30 07:50 Temp 36.5 36.3 36.5 Pulse 110 96 110 99 Resp 20 20 20 20 B/P (MAP) 120/70 (87) 108/62 (77) 102/68 (79) Pulse Ox 98 98 O2 Delivery Room Air 07/06/20 07/06/20 07/06/20 07/06/20 08:05 08:20 08:35 08:50 Pulse 101 91 109 115 Resp 20 20 20 20 B/P (MAP) 110/74 (86) 109/67 (81) 112/66 (81) 123/74 (90) 07/06/20 07/06/20 07/06/20 07/06/20 08:55 09:00 09:05 09:10 Pulse 99 109 112 122 Resp 20 20 20 20 B/P (MAP) 120/72 (88) 114/75 (88) 112/66 (81) 121/67 (85) Pulse Ox 100 100 98 98 O2 Delivery Room Air Room Air Room Air Room Air 07/06/20 07/06/20 07/06/20 07/06/20 09:15 09:20 09:25 09:30 Temp 36.0 Pulse 105 98 93 93 Resp 20 20 20 20 B/P (MAP) 111/59 (76) 102/57 (72) 100/59 (73) 84/53 (63) Pulse Ox 98 98 98 98 O2 Delivery Room Air Room Air Room Air Room Air 07/06/20 07/06/20 07/06/2011/21 09:35 09:40 09:45 10:00 Pulse 99 77 85 86 Resp 20 20 20 20 B/P (MAP) 106/60 (75) 99/60 (73) 115/61 (79) 100/59 (73) Pulse Ox 100 99 99 100 O2 Delivery Room Air Room Air Room Air Room Air 07/06/20 07/06/20 07/06/20 07/06/20 10:15 10:30 10:45 11:00 Pulse 80 88 95 75 Resp 20 20 20 20 B/P (MAP) 92/56 (68) 95/66 (76) 98/66 (77) 99/66 (77) Pulse Ox 100 100 99 99 O2 Delivery Room Air Room Air Room Air Room Air 07/06/20 07/06/20 07/06/20 07/06/20 11:15 11:30 11:40 11:55 Pulse 78 94 89 78 Resp 20 20 20 20 B/P (MAP) 98/61 (73) 94/62 (73) 94/59 (71) 95/50 (65) Pulse Ox 99 100 100 97 O2 Delivery Room Air Room Air Room Air Room Air 07/06/20 07/06/20 07/06/20 07/06/20 12:10 12:30 12:45 13:00 Temp 35.9 Pulse 87 78 83 87 Resp 20 20 20 20 B/P (MAP) 95/58 (70) 99/64 (76) 103/59 (74) 110/56 (74) Pulse Ox 100 100 100 100 O2 Delivery Room Air Room Air Room Air Room Air 07/06/20 07/06/20 07/06/20 07/06/20 13:20 13:30 14:10 14:26 Temp 36.9 37.0 37.2 Pulse 107 84 190 100 Resp 20 20 20 20 B/P (MAP) 112/68 (83) 100/61 (74) 125/94 (104) 105/55 (72) Pulse Ox 91 91 91 91 O2 Delivery Room Air Room Air Room Air Room Air 07/06/20 14:43 Temp 37.1 Pulse 100 Resp 20 B/P (MAP) 105/55 (72) Pulse Ox 91 O2 Delivery Room Air Signs of Distress by FHT Signs of Distress no Rupture of Membranes Spontaneous Ruture of Membrane: No Amniotic Membrane Rupture Time: 0639 Amniotic Membrane Fluid Desc.: Clear Induction/Anesthesia Epidural Cath Placement - Time: 0900 L&D Stage2 Stage Two Stage II Date: Jul 06, 2020 Stage II Time: 14:02 Monitors and Tracing Monitor Mode: Internal Heart Rate: 120 Monitor Accelerations: Uniform Monitor Decelerations: Variable Intermediate Variability: Average (6-10) Short Term Variability: Present Position: Left Occiput Anterior Presentation: Vertex Signs of Distress by FHT Signs of Distress no Cord Descript/Complications Cord Vessel Description: 3 Vessels Delivery Type Delivery Method: Spontaneous Vaginal Anterior Shoulder: Left Episiotomy/Perineal Laceration Laceraction(s)/Extensions: No Condition of Delivery 1 minute Comment: 9 5 minute Comment: 9 Condition of Infant Condition of Infant: Living Exam: No Observed Abnormalities Resuscitation Resuscitation: N/A - Spontaneous Resp L&D Stage3 Stage Three Stage III Date: Jul 06, 2020 Stage III Time: 14:07 Pictocin Pitocin Administration mu/min: 12 Pitocin ml/hr: 12 Placenta Delivery Placenta Delivery: Spontaneous Delivery Summary Summary Estimated blood loss (mL): 150 Condition of Delivery Examined: Cervix Examined Post Hemorrhage: No Intervention Required none ARMANDO GIRALDO MD Jul 06, 2020 15:07
[2020-07-06] MEDS ORDERED: TETANUS,DIPTH,PERTUSS P/F (BOOSTRIX) 0.5 ML VIAL IM ONE (15:15)
[2020-07-06] MEDS ORDERED: BENZOCAINE/MENTHOL (DERMOPLAST) 60 ML CAN TP PRN (15:15)
[2020-07-06] MEDS ORDERED: MEASLES,MUMPS,RUBELLA 1 EA INJ SQ ONE (15:15)
[2020-07-06] MEDS ORDERED: WITCH HAZEL(TUCKS) 40 EA JAR TOP PRN (15:15)
--- NOTE | 2020-07-06 15:30 | NUR ---
Report from Hugo Caldwell RN
--- NOTE | 2020-07-06 15:35 | NUR ---
FFU/0, light vag flow, 1 clot noted.
[2020-07-06] MEDS: IBUPROFEN 600 MG (MOTRIN) TAB PO SCH ×2 (17:08→23:28)
--- NOTE | 2020-07-06 18:15 | NUR ---
Pt up to bathroom, small void. +percare, new gown, pad and panties applied.
--- NOTE | 2020-07-06 18:20 | NUR ---
Pt transferred from [facility] to [facility] in stable condition via ambulatory accompanied by this rn, s/o, , and belongings. Oriented to room, fresh ice water given. No further needs at this time.
[2020-07-06] MEDS: ACETAMINOPHEN 500 MG TAB (TYLENOL) PO SCH (23:27)
[2020-07-06] MEDS: DOCUSATE SODIUM 100 MG (COLACE) CAP PO SCH (23:28)
[2020-07-07] MEDS: IBUPROFEN 600 MG (MOTRIN) TAB PO SCH ×2 (05:40→11:26)
[2020-07-07] MEDS: ACETAMINOPHEN 500 MG TAB (TYLENOL) PO SCH ×2 (05:40→11:25)
[2020-07-07 05:43] VITALS: BP 93/59
[2020-07-07 06:15] LABS: BASOPHILS % (AUTO) 0 % (0-10); EOSINOPHILS # (AUTO) 0.2 10^3/uL (0.0-0.3); EOSINOPHILS % (AUTO) 2 % (0-10); HEMATOCRIT 31 % (35-52); HEMOGLOBIN 9.7 g/dL (11.5-16.0); LYMPHOCYTES # (AUTO) 2.3 10^3/uL (1.0-4.0); LYMPHOCYTES % (AUTO) 18 % (12-44); MEAN CORPUSCULAR HEMOGLOBIN 27 pg (25-34); MEAN CORPUSCULAR HGB CONC 31 g/dL (32-36); MEAN CORPUSCULAR VOLUME 85 fL (80-99); MEAN PLATELET VOLUME 11.6 fL (9.0-12.2); MONOCYTES # (AUTO) 0.9 10^3/uL (0.0-1.0); MONOCYTES % (AUTO) 7 % (0-12); NEUTROPHILS # (AUTO) 8.8 10^3/uL (1.8-7.8); NEUTROPHILS % (AUTO) 71 % (42-75); PLATELET COUNT 157 10^3/uL (130-400); WHITE BLOOD COUNT 12.4 10^3/uL (4.3-11.0)
--- NOTE | 2020-07-07 06:59 | Anesthesia-Regional Post-Op ---
Regional Patient Condition Mental Status: Alert, Oriented x3 Circulation: Same as Pre-Op Headache: Absent Sensation: Full Recovery Motor Block: Absent Post Op Complications Complications None Follow Up Care/Instructions Patient Instructions None needed. Anesthesia/Patient Condition Patient is doing well, no complaints, stable vital signs, no apparent adverse anesthesia problems. No complications reported per nursing. D/C home per [place] Criteria: No HUDSON MURPHY CRNA Jul 07, 2020 06:59
--- NOTE | 2020-07-07 07:12 | Discharge Summary ---
Diagnosis/Chief Complaint Date of Admission Jul 06, 2020 at 06:08 Date of Discharge July 07, 2020 Discharge Date: Jul 07, 2020 Discharge Time: 16:00 Admission Diagnosis Admission Diagnosis 1. Intrauterine at term 39 weeks 2. Anemia due to Discharge Diagnosis 1. Intrauterine at term 39 weeks 2. Anemia due to Reason Hospital Visit 25-year-old 4 now term 4 who initially presents to labor and delivery for induction of labor at 39 weeks 3 days gestation on July 06, 2020. Patient's care was essentially unremarkable. Her EDC was listed as July 10, 2020. She had no significant contractions upon admission. Her GBS status at 36 weeks was negative and her COVID testing 2 days prior to induction was negative. Discharge Summary-OBS Procedures 1. Epidural per anesthesia 2. Spontaneous vaginal delivery Discharge Physical Examination Allergies: Coded Allergies: latex (Unverified Allergy, Mild, RASH, 01/01/15) Vitals & I&Os Vital Signs Date Time Temp Pulse Resp B/P (MAP) Pulse Ox O2 Delivery O2 Flow Rate FiO2 07/07/20 05:43 36.4 88 18 93/59 (70) 98 07/06/20 18:26 Room Air General Appearance: No Acute Distress Respiratory: Clear to Auscultation Cardiovascular: Regular Rate Abdominal: Normal Bowel Sounds, Soft (with uterus firm) Extremities: No Tenderness/Swelling Psych/Mental Status: Mental Status NL Hospital Course patient was admitted in the morning of July 06, 2020 for induction of labor. She underwent artificial rupture of membranes with clear fluid noted. Epidural was given per anesthesia and she tolerated well. Once in labor she required Pitocin augmentation. And this was taken to maximum of 15 mU/m. Once the completion she was allowed to push and ultimately delivered a term viable female with Apgars of 9 at 1 minute and 9 at 5 minutes. Following delivery she underwent routine care orders. She had no complications during the remainder of hospital stay. Her hemoglobin day after delivery was noted to be 9.7 and this was compared to admission of 10.0. Patient was without dizziness or complaints. She did not complain of any shortness of breath, leg pain, or chest pain. She was felt ready for dismissal after 24 hours in the late p.m. of July 07, 2020 Pending Labs Laboratory Tests 07/07/20 05:45: White Blood Count 12.4, Red Blood Count 3.64, Hemoglobin 9.7, Hematocrit 31, Mean Corpuscular Volume 85, Mean Corpuscular Hemoglobin 27, Mean Corpuscular Hemoglobin Concent 31, Red Cell Distribution Width 14.2, Platelet Count 157, Mean Platelet Volume 11.6, Immature Granulocyte % (Auto) 2, Neutrophils (%) (Auto) 71, Lymphocytes (%) (Auto) 18, Monocytes (%) (Auto) 7, Eosinophils (%) (Auto) 2, Basophils (%) (Auto) 0, Neutrophils # (Auto) 8.8, Lymphocytes # (Auto) 2.3, Monocytes # (Auto) 0.9, Eosinophils # (Auto) 0.2, Basophils # (Auto) 0.0, Immature Granulocyte # (Auto) 0.2 Discharge Instructions to patient/family Please see electronic discharge instructions given to patient. Discharge Medications Reviewed and agree with Discharge Medication list on patient's Discharge Instruction sheet Clinical Quality Measures DVT/VTE Risk/Contraindication: Risk Factor Score Per Nursin RFS Level Per Nursing on Admit: 1=Low/No VTE PPX ARMANDO GIRALDO MD Jul 07, 2020 07:12
--- NOTE | 2020-07-07 07:13 | Discharge Inst-Women's Service ---
Discharge Inst-Women's Serv Depart Medication/Instructions New, Converted or Re-Newed RX: Other Instructions may have ibuprofen 200 mg tablets [id number] and take 2 or 3 every 6 hours if needed for cramps. Problems Reviewed?: Yes Consults/Follow Up Additional Follow Up: Yes (with Dr. Giraldo in 6 weeks) Activity Activity: Activity as Tolerated Driving Instructions: No Driving for 1 Week Nothing Inside Vagina: No [place] (for 6 weeks) Diet Discharge Diet: Regular Diet Return to The Hospital For: as below Symptoms to Report to : Bleeding Excessive, Fever Over 101 Degrees F, Vaginal Discharge Foul For Any Problems or Questions: Contact Your Physician ARMANDO GIRALDO MD Jul 07, 2020 07:13
[2020-07-07] MEDS: DOCUSATE SODIUM 100 MG (COLACE) CAP PO SCH (08:35)
--- NOTE | 2020-07-07 08:35 | NUR ---
Physical shift assessment completed, vitals obtained, scheduled meds given. No further needs at this time.
[2020-07-07 08:36] VITALS: BP 102/56
--- NOTE | 2020-07-07 09:22 | NUR ---
CM/SS visited with patient for social service consult. Plan: Patient will discharge today, self care. No needs identified. Home: The patient lives at home with her significant other and 3 children. Supplies: The patient has a crib, pack-n-play, bassinet, bottles, diapers, clothes, formula, and car seat. She denies any further supply needs. Resources: The patient is set up with [facility]. She denies having resources with [employer], [employer], or [employer]. CM/SS informed the patient about the [facility] Diaper stock availability if she was connected with a resource. She declined services at this time. Substance use: Denies past or current. Occupation: The patient reports both her and significant other are working. Support: The patient verbalized she has good support with family and friends. No further needs.
[2020-07-07 16:26] VITALS: BP 112/67
--- NOTE | 2020-07-07 16:35 | NUR ---
Discharge instructions given to pt. Pt informed to call Dr. Sandhu's office for 6 week appointment scheduling. Pt verbalizes understanding. PHS given to pt. Pt signs that discharge instructions were given. Waiting for infant discharge prior to leaving unit.
--- NOTE | 2020-07-07 17:20 | NUR ---
Pt discharged from unit in stable condition via ambulatory accompanied by this rn, s/o, and belongings.
== END 2020-07-07 17:20 | disposition home or self-care (01) | DRG 807 ==
LOC: WSo 05:58 → LDRP 05:59 → WSo 06:07 → LDRP 06:08
PROVIDERS: ADMIT Family Medicine; ATTEND Family Medicine
PROC: 10E0XZZ Delivery of Products of Conception, External Approach (ICD-10-PCS; principal; 2020-07-06)
PROC: 10907ZC Drainage of Amniotic Fluid, Therapeutic from Products of Conception, Via Natural or Artificial Opening (ICD-10-PCS; 2020-07-06)
DX: O99.02 Anemia complicating childbirth (principal); D64.9 Anemia, unspecified; Z37.0 Single live birth; Z3A.39 39 weeks gestation of pregnancy; Z91.040 Latex allergy status
CPT/HCPCS: 36415; 83033; 85025; 86780; 86850; 86900; 86901

== ENCOUNTER 2022-05-14 19:41 | Emergency (ER) | payer MEDICAID ==
[~2022-05-14] VITALS: Ht 157 cm; Wt 63.0 kg
--- NOTE | 2022-05-14 20:43 | ED EENT ---
History of Present Illness General Chief Complaint: Cough/Cold/Flu Symptoms Stated Complaint: FEVER/SORE THROAT Nursing Triage Note: PT TO ED W/ C/O FEVER ET SORE THROAT ONSET TODAY. PT AFEBRILE AT THIS TIME. Source: patient Exam Limitations: no limitations History of Present Illness Date Seen by Provider: May 14, 2022 Time Seen by Provider: 20:40 Initial Comments Patient is a 19-year-old female who presents to the emergency department for evaluation of sore throat that began earlier today. Patient's 2 children are also present in the ER being evaluated for similar symptoms. Patient states she has not had a fever and denies any respiratory symptoms like cough or congestion. She also states she has had no nausea/vomiting/diarrhea. States she does have some mild increased pain with swallowing. She denies any decreased range of motion of her neck, muffled voice, or inability fully open her mouth. Patient has had no medications for the symptoms today. No other known sick contacts outside of her 2 children. Allergies and Home Medications Allergies Coded Allergies: latex (Unverified Allergy, Mild, RASH, 01/01/15) Patient Home Medication List Home Medication List Reviewed: Yes No Active Prescriptions or Reported Meds Review of Systems Review of Systems Constitutional: no symptoms reported Eyes: No Symptoms Reported Ears: No Symptoms Reported Nose: no symptoms reported Mouth: no symptoms reported Throat: see HPI, pain Respiratory: no symptoms reported Cardiovascular: no symptoms reported Gastrointestinal: no symptoms reported Past Qfamkjr-Hfninh-Gtobco Hx Immunizations Up To Date Tetanus Booster (TDap): Less than 5yrs PED Vaccines UTD: No Seasonal Allergies Seasonal Allergies: No Past Medical History Surgeries: Yes (wisdom teeth) Appendectomy Respiratory: No Cardiac: No Neurological: Yes (childhood seizures-benign epilepsy, last one 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) Reproductive Disorders: No Female Reproductive Disorders: Ovarian Cyst Genitourinary: No Gastrointestinal: No Gastroesophageal Reflux Musculoskeletal: No Endocrine: No HEENT: No Cancer: No Psychosocial: No Integumentary: No Blood Disorders: No Adverse Reaction/Blood Tranf: No (hx of 1 unit given/no reaction) Family Medical History Asthma 19 MOTHER Headache disorder 19 MOTHER (migraines) G8 SISTER (migraines) No Family History of: AIDS Abdominal aortic aneurysm Remington's disease Alcoholism Alzheimer's disease Aphasia Arthritis Cancer of mouth Cardiovascular disease Cataracts Colon cancer Completed stroke Congenital disease Congenital heart disease Coronary thrombosis Cystic fibrosis Deafness or hearing loss Dementia Diabetes mellitus Drug abuse Dysphasia Fibrocystic disease of breast Gastroenteritis Glaucoma Hypercholesterolemia Hypertension Infertility Kidney disease Myocardial infarction Neoplasm Not obtainable due to adoption Osteoporosis Parkinson's disease Prostate cancer Psychosocial problem Respiratory disorder Seizure disorder Severe allergy Thyroid disease Tuberculosis Visual disorder No Pertinent Family Hx Physical Exam Vital Signs Vital Signs - First Documented 05/14/22 19:49 Temp 36.8 Pulse 86 Resp 20 B/P (MAP) 122/80 (94) Pulse Ox 98 O2 Delivery Room Air Height, Weight, BMI Height: 5'2.00" Weight: 140lbs. 0.0oz. 63.981929fm; 25.00 BMI Method:Stated General Appearance: WD/WN, no apparent distress Mouth/Throat: No pharynx swelling; pharynx tenderness; No tonsillar exudate, No tonsillar swelling Neck: non-tender, full range of motion, supple, normal inspection; No lymphadenopathy (R), No lymphadenopathy (L) Cardiovascular: regular rate, rhythm Respiratory: chest non-tender, lungs clear, normal breath sounds, no respiratory distress, no accessory muscle use Gastrointestinal: normal bowel sounds, non tender, soft Neurologic/Psychiatric: no motor/sensory deficits, alert, normal mood/affect, oriented x 3 Skin: normal color, warm/dry Progress/Results/Core Measures Results/Orders Lab Results Laboratory Tests Test 05/14/22 20:11 Range/Units Group A Streptococcus Screen NEGATIVE NEGATIVE My Orders Orders - JAIDEN VELEZ APRN Rapid Strep A Screen (05/14/22 20:06) Vital Signs/I&O Blood Pressure Mean: 94 Progress Progress Note : Progress Note Patient is nontoxic and well-hydrated on exam. Adventitious lung sounds or obstructive breathing noted. Mild oropharyngeal erythema noted without evidence of INTERN ARCHITECT or deep space infection. There is no tonsillar exudate or swelling noted. Patient has full range of motion of her neck with no trismus or muffled voice. Rapid strep obtained which is negative. Viral etiology likely. Discussed supportive care and anticipatory guidance. Follow-up with PCP. Return precautions for urgent symptomology discussed. Patient verbalized understanding. Departure Impression Primary Impression: Acute viral pharyngitis Disposition: 01 HOME, SELF-CARE Condition: Stable Departure-Patient Inst. Decision time for Depature: 20:40 Referrals: ARMANDO GIRALDO MD (PCP/Family) Primary Care Physician Patient Instructions: Viral Pharyngitis (DC) Scripts No Active Prescriptions or Reported Meds JAIDEN VELEZ APRN May 14, 2022 20:43
[2022-05-14 20:54] VITALS: BP 122/80
== END 2022-05-14 20:54 | disposition home or self-care (01) ==
LOC: EDUNIT# 19:41 → ER 19:42
DX: J02.9 Acute pharyngitis, unspecified (principal); B34.9 Viral infection, unspecified; Z91.040 Latex allergy status
CPT/HCPCS: 87430; 99283